=== PATIENT | female | born 1965 | race Caucasian/White ===

== ENCOUNTER 2018-04-02 16:11 | Emergency (ER) | payer BC, OTHER ==
[2018-04-02 16:28] VITALS: BP 156/97
--- NOTE | 2018-04-02 17:39 | UC ---
General HPI - HPI Summary HPI Summary: 52-year-old female presents with one-week has any of right jaw, neck, and arm pain. Describes pain as a constant "stinging" sensation. States she has had a couple of erythematous lesions to that area most of which have resolved. States the area is painful to touch. She also reports some chest tightness and shortness of breath however states she has had issues with this in the past and has had multiple EKGs as well as a treadmill stress test which was performed in December 2017 which she states was normal. Patient does have history of a cervical fusion. Also states that she had some flulike symptoms approximately one week ago that lasted approximately 5 days. Denies fever, chills, headache, facial droop, visual disturbances, dysphagia, speech difficulties, extremity numbness, tingling, or weakness, palpitations, dizziness, abdominal pain, nausea , or vomiting. - History of Current Complaint Chief Complaint: UCRash Stated Complaint: PAINFUL RASH Time Seen by Provider: 04/02/18 16:45 Hx Obtained From: Patient Hx Last Menstrual Period: 08/04/13 Pain Intensity: 10 - Allergy/Home Medications Allergies/Adverse Reactions: Allergies Allergy/AdvReac Type Severity Reaction Status Date / Time Latex, Natural Rubber Allergy Rash Verified 04/02/18 16:29 ramipril Allergy Nausea Verified 04/02/18 16:29 Sulfa (Sulfonamide Allergy Fever Verified 04/02/18 16:29 Antibiotics) PMH/Surg Hx/FS Hx/Imm Hx Cardiovascular History: Hypertension - Surgical History Surgical History: Yes Surgery Procedure, Year, and Place: LLQ ABSCESS DRAINAGE- MRSA,L knee surgery 2008,Oral surgery- DENTAL IMPLANT, ( titanium plate put it mouth) BREAST REDUCTION - 2001,T & A - as child,SPINAL FUSION 2013. LEFT BREAST BIOPSY 2014 - Family History Known Family History: Positive: Cardiac Disease - Father - Stents placed age 60 , Hypertension - Social History Occupation: Employed Full-time Lives: With Family Alcohol Use: Occasionally Substance Use Type: None Smoking Status (MU): Never Smoked Tobacco Have You Smoked in the Last Year: No - Immunization History Most Recent Influenza Vaccination: 2010 Most Recent Tetanus Shot: unknown Most Recent Pneumonia Vaccination: never had Review of Systems All Other Systems Reviewed And Are Negative: Yes Constitutional: Negative: Fever, Chills Skin: Positive: Rash Eyes: Negative: Blurred Vision, Diplopia, Drainage, Eye Redness, Photophobia ENT: Negative: Sore Throat, Ear Ache, Nasal Discharge, Sinus Congestion, Sinus Pain/Tenderness Respiratory: Positive: Shortness Of Breath. Negative: Cough Cardiovascular: Positive: Chest Pain. Negative: Palpitations Gastrointestinal: Negative: Abdominal Pain, Vomiting, Diarrhea, Nausea Genitourinary: Positive: Negative Musculoskeletal: Positive: Negative Neurological: Negative: Headache, Weakness, Paresthesia, Numbness Is Patient Immunocompromised?: No Physical Exam - Summary Physical Exam Summary: GENERAL APPEARANCE: Well developed, obese, alert and cooperative, and appears to be in no acute distress. EYES: PERRL, EOM intact. Conjunctiva clear, no discharge. Vision is grossly intact. EARS: External auditory canals and tympanic membranes clear, hearing grossly intact. NOSE: No nasal discharge. THROAT: Oral cavity and pharynx normal. Tonsils surgically absent. Teeth and gingiva in good general condition. NECK: Neck supple, non-tender. CARDIAC: Normal S1 and S2. No S3, S4 or murmurs. Rhythm is regular. There is no peripheral edema, cyanosis or pallor. Extremities are warm and well perfused. Capillary refill is less than 2 seconds. LUNGS: Clear to auscultation without rales, rhonchi, wheezing or diminished breath sounds. ABDOMEN: Positive bowel sounds. Soft, nondistended, nontender. No guarding or rebound. No masses or hepatosplenomegally. MUSKULOSKELETAL: ROM intact to all extremities. No joint erythema or tenderness. Normal muscular development. Normal gait. NEUROLOGICAL: CN II-XII intact. Strength and sensation symmetric and intact throughout. Reflexes 2+ throughout. Cerebellar testing normal. SKIN: Single flat, erythematous, maculopapular lesion under right eye and single , erythematous, papular lesion to the right clavicle. Triage Information Reviewed: Yes Vital Signs: Initial Vital Signs Temp 97.9 F 04/02/18 16:24 Pulse 74 04/02/18 16:24 Resp 18 04/02/18 16:24 BP 156/97 04/02/18 16:24 Pulse Ox 99 04/02/18 16:24 Vital Signs Reviewed: Yes Diagnostics - EKG Cardiac Rate: NL - 74 bpm Cardiac Rhythm: Sinus: Normal Ectopy: PVCs - single ST Segment: Normal EKG Comparison: No Significant Change - No significant change from EKG performed on 04/09/2013. Summary of EKG Findings: NSR with single PVC. Non-specific T-wave flattening in multiple leads. No BARBARA. No significant change when compared to EKG from 2013. Course/Dx - Course Course Of Treatment: 52-year-old female presents with one-week has any of right jaw, neck, and arm pain. Describes pain as a constant "stinging" sensation. States she has had a couple of erythematous lesions to that area most of which have resolved. States the area is painful to touch. She also reports some chest tightness and shortness of breath however states she has had issues with this in the past and has had multiple EKGs as well as a treadmill stress test which was performed in December 2017 which she states was normal. Patient does have history of a cervical fusion. Also states that she had some flu-like symptoms approximately one week ago that lasted approximately 5 days. States her PCP recommended she he evaluated for possible shingles. Denies fever, chills , headache, facial droop, visual disturbances, dysphagia, speech difficulties, extremity numbness, tingling, or weakness, palpitations, dizziness, abdominal pain, nausea, or vomiting. Afebrile. Hypertensive but otherwise vital signs within normal parameters. Exam reveals an adult female in no acute distress. A single flat, erythematous, maculopapular lesion under right eye and single, erythematous, papular lesion to the right clavicle were noted. Patient reported stinging pain with light palpation to right lower jaw, right anterior neck, and right clavicle. Remainder of exam was unremarkable. 12-lead EKG was obtained since patient did report some chest pain and shortness of breath. Showed a normal sinus rhythm at a rate of 74 with a single PVC, nonspecific T- wave flattening was noted in multiple leads, no ST elevation or depressions were noted, and EKG appeared on changed from previous study performed in March 2013. Although the description of the patient's pain is consistent with shingles the skin lesions were atypical for shingles and her pain did not appear to be dermatomal origin. Neck was supple and nontender however with her history of cervical fusion may also consider a diagnosis of cervical radiculopathy is the source of her pain. Discussed the differential diagnosis with the patient as well as the risks and benefits of treating. Patient is electing to start on valacyclovir for possible shingles as well as a short course of prednisone the possibility of a cervical radiculopathy. She is to follow-up with her primary care provider within 5 days to have a recheck of her symptoms. Anticipatory guidance and warning symptoms that would require immediate evaluation in the emergency room were reviewed with the patient. He verbalizes understanding and agrees with plan of care. - Diagnoses Provider Diagnosis: Neuropathic pain Discharge - Sign-Out/Discharge Documenting (check all that apply): Patient Departure All imaging exams completed and their final reports reviewed: No Studies - Discharge Plan Condition: Stable Disposition: HOME Prescriptions: predniSONE TAB* [Deltasone TAB*] 50 mg PO DAILY 5 Days #5 tab Valacyclovir HCl [Valacyclovir] 1 gm PO TID 7 Days #21 tab Patient Education Materials: Shingles (ED), Cervical Radiculopathy (ED) Referrals: Yanira Adame MD [Primary Care Provider] - 5 Days (Follow up within 5 days for recheck of symptoms.) Additional Instructions: The EKG performed in the clinic today was unchanged from your previous EKG in March 2013 therefore I have a low suspicion that your pain is cardiac in origin. Your symptoms are atypical for shingles although with the few lesions on your skin it is possible that this is the cause. A cervical radiculopathy is another possibility especially with your history of cervical fusion. I will start you on an antiviral medication that would help with shingles as well as a short course of steroids which may be beneficial if this is a cervical radiculopathy. Take valacyclovir 1000 mg three times a day for 7 days. Take prednisone 50 mg daily for 5 days. Follow up with your primary care provider within the next 5 days for recheck of symptoms. Seek immediate medical attention in the emergency room if you develop fever greater than 100.5 F, have worsening pain, chest pain, palpitations, shortness of breath, you break out in a cold sweat, become weak or dizzy, or have any worsening of symptoms. - Billing Disposition and Condition Condition: STABLE Disposition: Home - Attestation Statements Provider Attestation: Per institutional requirements, I have reviewed the chart, however, I was not consulted specifically or made aware of this patient by the midlevel provider. I did not personally evaluate, interact with , or disposition this patient.
== END 2018-04-02 17:57 | disposition home or self-care (01) ==
LOC: UCEAST 16:11
DX: G62.9 Polyneuropathy, unspecified (principal); R68.84 Jaw pain; M79.601 Pain in right arm; R07.89 Other chest pain; R06.02 Shortness of breath; I10 Essential (primary) hypertension; Z91.040 Latex allergy status; Z88.2 Allergy status to sulfonamides; Z88.8 Allergy status to other drugs, medicaments and biological substances
CPT/HCPCS: 93005; 99212; G0463